=== PATIENT | female | born 1955 | race Caucasian/White ===

== ENCOUNTER → 2016-06-10 18:12 | Outpatient (CLI) | payer MEDICARE ==
[2013-03-13 09:31] VITALS: BMI 28.7
[~2016-06-10 18:12] MED LIST: AMBIEN10 MG PO; COUMADIN2.5 MG; COUMADIN2.5 MG PO; FOLIC ACID1 MG PO; NORCO 10/325 TA1 TA1 PO; NORCO 5/325 TAB1 TA1; NORCO 5/325 TAB1 TA1 PO; PRINIVIL20 MG PO; PYRIDOXINE HCL100 MG PO; TOPROL XL100 MG PO; VITAMIN B-1000 MCG/M INJ; VITAMIN B-1000 MCG/M SQ; VITAMIN D5000 UNIT PO; XANAX0.5 MG PO; ZANTAC150 MG PO
[2016-06-10 18:57] LABS: INR 0.94 (0.85-1.17); PROTIME 12.4 SECONDS (11.6-15.0)
[2016-06-10 19:07] LABS: % SATURATION 53 % (15-55); IRON 132 ug/dl (35-150); TOTAL IRON BIND CAPACITY 249 ug/dl (260-445); UNSAT IRON BIND CAPACITY 117 ug/dl (150-375)
== END | disposition home or self-care (01) ==
LOC: D.LABREF 18:12
PROVIDERS: Family Medicine
DX: E83.119 Hemochromatosis, unspecified (principal); I82.5Z9 Chronic embolism and thrombosis of unspecified deep veins of unspecified distal lower extremity

== ENCOUNTER 2017-12-06 08:00 | Outpatient (CLI) | payer MEDICARE ==
[2013-03-13 09:31] VITALS: BMI 28.7
== END 2017-12-06 10:17 | disposition home or self-care (01) ==
LOC: D.MAMMO 08:00
DX: Z12.31 Encounter for screening mammogram for malignant neoplasm of breast (principal)

== ENCOUNTER 2019-10-27 18:16 | Inpatient (IN) | payer MEDICARE ==
[~2019-10-27] VITALS: Ht 149.9 cm; Wt 53.1 kg
[2019-10-27 19:03] LABS: BASOPHILS 0.4 % (0-2); EOSINOPHILS 3.7 % (0-7); HEMATOCRIT 44.2 % (36.0-48.0); HEMOGLOBIN 14.6 g/dL (12-16); IMMATURE GRANULOCYTES 0.4 % (0-5); LYMPHOCYTES 15.3 % (15-50); MCV 93.8 fL (80.0-100.0); MEAN PLATELET VOLUME 8.3 fL (7.4-10.4); MONOCYTES 7.1 % (2-11); NEUTROPHILS 73.1 % (40-80); PLATELET COUNT 259 10x3/uL (130-400); RBC 4.71 10x6/uL (4.00-5.40); RDW 13.9 % (11.5-14.5); WBC 14.1 10x3/uL (4.8-10.8)
[2019-10-27 19:04] VITALS: BP 166/99
[2019-10-27 19:12] LABS: APTT 35.2 SECONDS (22.8-39.4); INR 1.06 (0.85-1.17); PROTIME 13.7 SECONDS (11.6-15.0)
[2019-10-27 19:17] LABS: ANION GAP 9.2 mmol/L (8-16); CALCIUM 8.3 mg/dL (8.5-10.1); CARBON DIOXIDE 29.6 mmol/L (21.0-32.0); CREATININE - SERUM 0.9 mg/dL (0.6-1.3); POTASSIUM - SERUM 4.8 mmol/L (3.5-5.1)
[2019-10-27 19:22] LABS: ALBUMIN 2.5 g/dL (3.4-5.0); BILIRUBIN - TOTAL 0.29 mg/dL (0.2-1.3); PROTEIN - SERUM 6.7 g/dL (6.4-8.2)
[2019-10-27 19:26] VITALS: BP 160/96
--- NOTE | 2019-10-27 19:33 | NUR ---
SURGICAL PACKET PRINTED AND CONSENTS SIGNED BY PATIENT, PATIENT SHOULD GO TO SURGERY IN ABOUT AN HOUR.PATIENT A+O X3, DAUGHTER TO BEDSIDE.
--- NOTE | 2019-10-27 19:50 | NUR ---
PATIENT WILL BE GOING TO ROOM #2236 AFTER SURGERY.
[2019-10-27 20:02] VITALS: BP 154/97
[2019-10-27 21:17] VITALS: BP 145/87
[2019-10-27 23:44] VITALS: BP 153/90
--- NOTE | 2019-10-27 23:50 | NUR ---
RECEIVED TO ROOM FROM OR. AWAKE,ALERT.DENIES DISCOMFORT AT PRESENT. IV TO LAC INTACT. DRESSING TO RIGHT HIP INTACT WITHOUT DRAINAGE NOTED. O2 @ 2L PER NC ON. NO DISTRESS NOTED. CL IN REACH. DAUGHTER AT BEDSIDE.
[2019-10-28 00:36] VITALS: BMI 23.6
--- NOTE | 2019-10-28 02:32 | NUR ---
PLACED 20 PIV TO PATIENT'S RIGHT FA.
[2019-10-28 04:00] VITALS: BP 96/57
--- NOTE | 2019-10-28 04:00 | NUR ---
I have reviewed this patient and I concur with the Shift Assessment completed by the Licensed Practical Nurse today this shift.
[2019-10-28 06:38] LABS: HEMATOCRIT 39.9 % (36.0-48.0); HEMOGLOBIN 12.7 g/dL (12-16); MCH 30.4 pg (26.0-34.0); MCHC 31.8 g/dL (31.0-37.0); MCV 95.5 fL (80.0-100.0); MEAN PLATELET VOLUME 9.1 fL (7.4-10.4); PLATELET COUNT 256 10x3/uL (130-400); RBC 4.18 10x6/uL (4.00-5.40); RDW 14.1 % (11.5-14.5); WBC 25.8 10x3/uL (4.8-10.8)
[2019-10-28 07:00] LABS: ALBUMIN 2.1 g/dL (3.4-5.0); ANION GAP 9.8 mmol/L (8-16); BILIRUBIN - TOTAL 0.34 mg/dL (0.2-1.3); CALCIUM 7.6 mg/dL (8.5-10.1); CARBON DIOXIDE 27.6 mmol/L (21.0-32.0); CREATININE - SERUM 1.1 mg/dL (0.6-1.3); MAGNESIUM - SERUM 1.2 mg/dL (1.8-2.4); POTASSIUM - SERUM 5.4 mmol/L (3.5-5.1); PROTEIN - SERUM 6.2 g/dL (6.4-8.2)
[2019-10-28 07:27] LABS: LYMPHOCYTES 5 % (15-50); MONOCYTES 5 % (2-11); NEUTROPHILS 88 % (40-80); PLATELET ESTIMATE NORMAL
[2019-10-28 08:00] VITALS: BP 134/80
--- NOTE | 2019-10-28 09:00 | NUR ---
ALERT AND ORIENTED X4. DILAUDID GIVEN PRN FOR RIGHT HIP PAIN 12/06 . DRESSING DRY AND INTACT WITH PEDAL PULSES NOTED W/O PERIPHERAL EDEMA WITH SKIN WIARM AND INTACT. SCD'S ON AT THIS TIME. WBAT PER THERAPY.ELECTROLYTES REPLACED PER PROTOCOL. IVF INFUSING TO RT. F/A W/O ANY S/S OF INFECTION INFILTRATION. ENCOURAGED TO USE CALL LIGHT FOR ASSSIT.
[2019-10-28 11:30] VITALS: BP 166/95
[2019-10-28 12:00] VITALS: BP 166/95
[2019-10-28 13:24] LABS: MAGNESIUM - SERUM 3.1 mg/dL (1.8-2.4); POTASSIUM - SERUM 5.2 mmol/L (3.5-5.1)
[2019-10-28 16:00] VITALS: BP 180/100
[2019-10-28 21:01] VITALS: BP 151/94
[2019-10-29 00:21] VITALS: BP 148/88
[2019-10-29 06:27] LABS: BASOPHILS 0.2 % (0-2); EOSINOPHILS 0.3 % (0-7); HEMATOCRIT 38.3 % (36.0-48.0); HEMOGLOBIN 12.4 g/dL (12-16); IMMATURE GRANULOCYTES 0.4 % (0-5); LYMPHOCYTES 9.3 % (15-50); MCH 30.4 pg (26.0-34.0); MCHC 32.4 g/dL (31.0-37.0); MCV 93.9 fL (80.0-100.0); MEAN PLATELET VOLUME 9.1 fL (7.4-10.4); MONOCYTES 9.7 % (2-11); NEUTROPHILS 80.1 % (40-80); PLATELET COUNT 286 10x3/uL (130-400); RBC 4.08 10x6/uL (4.00-5.40); RDW 13.9 % (11.5-14.5)
[2019-10-29 06:40] LABS: ALBUMIN 2.5 g/dL (3.4-5.0); ALKALINE PHOSPHATASE 224 U/L (30-120); ALT (SGPT) 16 U/L (10-68); BILIRUBIN - TOTAL 0.64 mg/dL (0.2-1.3); CALC OSMOLALITY 241 mosm/kg (275-300); CALCIUM 7.9 mg/dL (8.5-10.1); CARBON DIOXIDE 30.2 mmol/L (21.0-32.0); CHLORIDE - SERUM 89 mmol/L (98-107); GLUCOSE 119 mg/dL (74-106); PROTEIN - SERUM 6.7 g/dL (6.4-8.2); SODIUM 121 mmol/L (136-145); UREA NITROGEN 5 mg/dL (7-18)
[2019-10-29 06:41] LABS: CREATININE - SERUM 0.8 mg/dL (0.6-1.3); POTASSIUM - SERUM 4.1 mmol/L (3.5-5.1); eGFR NON AFRICAN AMERICAN 76 mL/min (90-120)
--- NOTE | 2019-10-29 06:46 | NUR ---
I have reviewed this patient and I concur with the Shift Assessment completed by the Licensed Practical Nurse today this shift.
[2019-10-29 06:47] VITALS: BP 139/90
[2019-10-29 08:08] LABS: BACTERIA FEW /hpf (NEGATIVE); BILIRUBIN NEGATIVE (NEGATIVE); EPITHELIAL CELLS 0-5 /hpf (0-5); GLUCOSE NEGATIVE (NEGATIVE); KETONE NEGATIVE (NEGATIVE); NITRITE NEGATIVE (NEGATIVE); RED CELLS - URINE 0-5 /hpf (0-5); SPECIFIC GRAVITY 1.005 (1.005-1.020); UROBILINOGEN NORMAL (NORMAL); WHITE CELLS - URINE OCC /hpf (NEGATIVE)
[2019-10-29 08:16] VITALS: BP 153/93
--- NOTE | 2019-10-29 08:48 | OP ---
PATIENT NAME: SAWYER OWENS MEDICAL RECORD: [id number] :51 LOCATION:[facility] [id number] ADMISSION DATE:10/27/19 SURGEON: JL NELSON DO DATE OF OPERATION: 10/27/2019 PROCEDURE PERFORMED: Right hip intramedullary nailing. PREOPERATIVE DIAGNOSIS: Right hip intertrochanteric fracture. POSTOPERATIVE DIAGNOSIS: Right hip intertrochanteric fracture. INDICATIONS: Ms. Owens is a 64-year-old female who fell landing on her right hip, brought to the ER and seen to have a hip fracture. I talked to her and told her since she had not eaten since noon we would do her hip at 8 p.m. She is aware of the risks including infection, bleeding, damage to nerves and vessels, need for further surgery, continued pain, hardware failure, screw cutout, continued pain, and need for further surgery, blood clots, and even and she signed the consent. SURGEON: Jl Nelson DO DESCRIPTION OF PROCEDURE: The patient was taken to the operative suite, laid in supine position, given general anesthetic and intubated. She was given a gram of Ancef preoperatively. She was then put over on the [place] table and positioned. The right hip was then prepped and draped in sterile fashion. A timeout was performed and everyone was in agreeance with correct side, site, the procedure. We then began by getting the starting point, make an incision just proximal to the greater trochanter, getting a good starting point with a starting pin on AP and lateral and used an entry reamer. We then reamed from a 9 up to an 11 and sized to be a 9 x 340 mm Affixus nail, put the nail down. Once it was in good position, we put the lag screw and measured in 90 reamed for that and then put in a 90-mm lag screw and compressed. Traction was let off prior to compressing and then locked the screw proximally through the nail and then put in the anti-rotation screw, at 75, drilled and put it in. An x-ray was taken in AP and lateral, ensuring good position of each one of the screws and proximal nail and then went distally with perfect circles then put one 5 mm screw, 38 mm long distally. This fit very well and the nail was in good position and had good reduction of the fracture proximally. We then irrigated the wounds. Ronen licea, certified retinal angiographer, assisted me with closing, we did 2-0 Vicryl in interrupted fashion on the skin. The IT band was closed proximally with 2-0 Vicryl in a [id number] and then Prineo glue was placed on all the incisions, all 3 of them. She was dressed with Telfa and Tegaderm. Awakened and taken to recovery in stable condition. Blood loss approximately 150 mL. COMPLICATIONS: None. TRANSINT:[id number] Voice Confirmation ID: [id number] DOCUMENT ID: [id number] OPERATIVE REPORT [id number] SAWYER OWENS MICHAEL D, DO at 0848 CC: [id number] DICTATION DATE: 10/27/192303 RESEARCH AND DEVELOPMENT TESTER: 10/28/19 0242 ADM IN [facility] [address] [place] [address]
--- NOTE | 2019-10-29 08:59 | NUR ---
SHE IS A LITTLE CONFUSED, THIS MORNING. HER RIGHT HIP DRESSING IS SATURATED AT THE TOP, THE OTHER DRESSING ARE CLEAN, DRY, INTACT. WILL CHANGE THE DRESSINGS TODAY. SHE IS SETTING UP IN THE CHAIR. THE CALL LIGHT IS WITHIN REACH.
[2019-10-29 12:11] VITALS: BP 171/96
--- NOTE | 2019-10-29 14:08 | NUR ---
DRESSING CHANGED TO THE RIGHT HIP, THERE WAS A LARGE BLOOD CLOT AT THE HIP (TOP) OF THE DRESSSING . ROBB REMOVED.
[2019-10-29 16:54] VITALS: BP 146/89
[2019-10-29 21:58] VITALS: BP 142/89
[2019-10-30 00:51] VITALS: BP 88/52
--- NOTE | 2019-10-30 02:13 | NUR ---
REC'D CHGE OF SHIFT WALKING ROUNDS.IN BED LEFT LEG IN CPM MACHINE GRICELDA. WELL. DRSG. DRY AND INTACT. WILL CONTINUE TO MONITOR FOR ANY CHGES. NEUROVASCULAR STATUS AND FOLLOW CURRENT PLAN OF CARE
[2019-10-30 05:24] LABS: BASOPHILS 0.1 % (0-2); EOSINOPHILS 0.8 % (0-7); HEMOGLOBIN 11.1 g/dL (12-16); IMMATURE GRANULOCYTES 0.4 % (0-5); LYMPHOCYTES 14.2 % (15-50); MCH 30.1 pg (26.0-34.0); MCHC 32.6 g/dL (31.0-37.0); MCV 92.1 fL (80.0-100.0); MONOCYTES 15.7 % (2-11); NEUTROPHILS 68.8 % (40-80); PLATELET COUNT 255 10x3/uL (130-400); RBC 3.69 10x6/uL (4.00-5.40); RDW 13.7 % (11.5-14.5)
[2019-10-30 05:50] LABS: WBC 14.2 10x3/uL (4.8-10.8)
[2019-10-30 05:51] LABS: ALKALINE PHOSPHATASE 172 U/L (30-120); ALT (SGPT) 13 U/L (10-68); BILIRUBIN - TOTAL 0.56 mg/dL (0.2-1.3); CALC OSMOLALITY 247 mosm/kg (275-300); CALCIUM 7.5 mg/dL (8.5-10.1); CHLORIDE - SERUM 90 mmol/L (98-107); CREATININE - SERUM 0.7 mg/dL (0.6-1.3); GLUCOSE 100 mg/dL (74-106); MAGNESIUM - SERUM 1.6 mg/dL (1.8-2.4); PHOSPHOROUS 2.2 mg/dL (2.5-4.9); POTASSIUM - SERUM 3.7 mmol/L (3.5-5.1); PROTEIN - SERUM 5.9 g/dL (6.4-8.2); SODIUM 124 mmol/L (136-145); eGFR NON AFRICAN AMERICAN 89 mL/min (90-120)
[2019-10-30 05:55] LABS: UREA NITROGEN 7 mg/dL (7-18)
--- NOTE | 2019-10-30 06:00 | NUR ---
I have reviewed this patient and I concur with the Shift Assessment completed by the Licensed Practical Nurse today this shift.
[2019-10-30 06:16] VITALS: BP 107/68
[2019-10-30 08:45] VITALS: BP 155/88
--- NOTE | 2019-10-30 09:43 | NUR ---
Rehab Note- Acute Inpatient Rehab prescreen order received. The patient has [facility] insurance and will require a PreAuth prior to an acute inpatient rehab stay. Will need OT Eval for PReAuth process. Will continue to follow at this time. THank you for this referral! Roxann Greco RN Clinical Liaison, [facility] Rehab
--- NOTE | 2019-10-30 09:54 | NUR ---
ADMINISTERED MORNING MEDICATIONS, PRN OXYCODONE FOR PAIN, PRN MAG FOR LOW MAG LEVELS. PT IS SITTING UPRIGHT IN BED. ASSESSMENT PERFORMED AT THIS TIME. BED IN LOWEST POSITION, BED RAILS X2, CALL LIGHT WITHIN REACH. WILL CONTINUE TO MONITOR.
[2019-10-30 12:53] VITALS: BP 130/79
--- NOTE | 2019-10-30 12:53 | NUR ---
ADMINISTERED PRN XANAX FOR ANXIETY. NEW BAG OF FLUIDS HUNG. ASSISTED PT TO BATHROOM AND BACK. POSITIONED COMFORTABLY. DIETARY COME IN, PT WAS ASKED WHAT FOOD SHE WOULD EAT BECUASE SHE FEELS THAT THE FOOD PROVIDED BY THE HOSPITAL IS "NOT GOOD". PT STATED SHE DIDN'T WANT ANYTHING FROZEN AND PROCESSED BUT WANTS A BAG OF TACOS FROM [employer]. PT HAS BEEN EDUCATED THAT [employer] IS ALSO PROCESSED FOOD. INSISTS THAT IT'S DIFFERENT. DENIES ANY NEEDS. BED IN LOWEST POSITION, BED RAILS X2, CALL LIGHT WITHIN REACH. WILL CONTINUE TO MONITOR.
[2019-10-30 14:53] VITALS: Ht 149.9 cm; Wt 53.1 kg
--- NOTE | 2019-10-30 15:58 | NUR ---
ADMINISTERED PRN PAIN MEDICATION FOR PAIN IN RIGHT LEG. AID IN ROOM ASESSING VITALS AT THIS TIME. DENIES ANY OTHER NEEDS. WILL CONTINUE TO MONITOR.
--- NOTE | 2019-10-30 16:43 | MORECARE ---
CASE MANAGEMENT DISCHARGE SUMMARY PATIENT: SAWYER WERNER UNIT: [id number] ADM DATE: 10/27/19 AGE: 64 : 53 SEX: F ROOM/BED: D.2236 AUTHOR: TOREY EPPS PHYSICIAN: REFERRING PHYSICIAN: GRETCHEN MERRITT MD DATE OF SERVICE: 10/30/19 Discharge Plan Patient Name: SAWYER WERNER Facility: [facility]:[place] : 1955 Planned Disposition: Anticipated Discharge Date: Discharge Date: Expected LOS: Initial Reviewer: [id number] Initial Review Date: 10/27/2019 Generated: 10/30/19 5:43 pm Comments DCP- Discharge Planning Updated by [email or web address]: Chelsey Alyssa on 10/30/19 3:[address] Patient Name: SAWYER WERNER Admission Status: ER Accout number: [id number] Admission Date: 10-27-2019 : 1955 Admission Diagnosis:DISPLACED INTERTROCHANTERIC FRACTURE OF RIGHT FEMUR, IN Attending: GRETCHEN LARES Current LOS: 3 Anticipated DC Date: Planned Disposition: Primary Insurance: [facility] MEDICARE SOLUTIONS Discharge Planning Comments: CM SPOKE WITH PATIENT'S DAUGHTER SETH AT [phone]. SHE WOULD LIKE HER MOM TO GO HOME WITH IF POSSIBLE. SHE STATES HER AUNT IS FLYING IN THURDS MORNING TO STAY WITH HER MOM. I TOLD HER I WOULD TALK WITH THE DOCTORS TO SEE IF THEY THOUGHT THIS WOULD BE A SAFE DISCHARGE. I KNOW PT IS RECOMMENDING REHAB BECAUSE SHE IS A HIGH FALL RISK. I WILL CHECK WITH THE DOCTORS TOMORROW SINCE THIS IS END OF THE DAY TODAY. Wardrobe Stylist: Chelsey Shah Patient Name: SAWYER WERNER Page [phone] at 1643 All edits/amendments must be made on the electronic document DICTATION DATE: 10/30/19 164 MANAGER FIELD: HORTENCIA 10/30/19 164 RPT#: [id number] DC DATE: STATUS: ADM IN [facility] [address] [place] [address] END OF REPORT
[2019-10-30 16:55] VITALS: BP 130/83
--- NOTE | 2019-10-30 17:19 | NUR ---
ASSISTED PT TO BATHROOM AND BACK TO BED, SITUATED COMFORTABLY. DENIES ANY NEEDS. BED IN LOWEST POSITION, BED RAILS X2, CALL LIGHT WITHIN REACH. WILL CONTINUE TO MONITOR.
--- NOTE | 2019-10-30 20:00 | NUR ---
ASSISTED PT TO THE BATHROOM. SHE STATES SHE HAS HAD 3 SOFT BOWEL MOVEMENTS AND DOES NOT WANT THE STOOL SOFTENERS TONIGHT. SHE REPORTS THE OXYCODONE HELPS MAKE HER PAIN MORE TOLERABLE. SHE DENIES PAIN OR NEEDS. HELPED HER BACK INTO BED WITH MINIMAL ASSISTANCE. BED LOW AND CALL LIGHT IS WITHIN REACH.
--- NOTE | 2019-10-30 20:01 | NUR ---
ADMINISTERED SECOND DOSE OF MAGNESIUM. HUNG BAG OF SODIUM PHOSPHATE FOR EP REPLACEMENT. UNABLE TO COMPLETELY SWALLOW PILL. IV MEDICATION, NO COMPLAINTS. PT IS SITTING UPRIGHT IN BED. DENIES ANY NEEDS. BED IN LOWEST POSITION, BED RAILS X2, CALL LIGHT WITHIN REACH. WILL CONTINUE TO MONITOR.
[2019-10-30 20:58] VITALS: BP 122/83
[2019-10-31 00:32] VITALS: BP 71/40
[2019-10-31 05:29] VITALS: BP 113/65
[2019-10-31 06:05] LABS: BASOPHILS 0.3 % (0-2); EOSINOPHILS 1.8 % (0-7); HEMATOCRIT 28.9 % (36.0-48.0); HEMOGLOBIN 9.2 g/dL (12-16); IMMATURE GRANULOCYTES 0.3 % (0-5); LYMPHOCYTES 16.3 % (15-50); MCH 29.6 pg (26.0-34.0); MCHC 31.8 g/dL (31.0-37.0); MCV 92.9 fL (80.0-100.0); MEAN PLATELET VOLUME 9.3 fL (7.4-10.4); MONOCYTES 17.6 % (2-11); NEUTROPHILS 63.7 % (40-80); PLATELET COUNT 255 10x3/uL (130-400); RBC 3.11 10x6/uL (4.00-5.40); RDW 14.1 % (11.5-14.5); WBC 11.2 10x3/uL (4.8-10.8)
[2019-10-31 06:21] LABS: ALBUMIN 1.8 g/dL (3.4-5.0); ALKALINE PHOSPHATASE 134 U/L (30-120); ALT (SGPT) 11 U/L (10-68); CALC OSMOLALITY 260 mosm/kg (275-300); CALCIUM 7.6 mg/dL (8.5-10.1); CARBON DIOXIDE 27.3 mmol/L (21.0-32.0); CHLORIDE - SERUM 98 mmol/L (98-107); CREATININE - SERUM 0.8 mg/dL (0.6-1.3); GLUCOSE 105 mg/dL (74-106); MAGNESIUM - SERUM 1.6 mg/dL (1.8-2.4); POTASSIUM - SERUM 3.2 mmol/L (3.5-5.1); SODIUM 131 mmol/L (136-145); UREA NITROGEN 7 mg/dL (7-18); eGFR NON AFRICAN AMERICAN 76 mL/min (90-120)
[2019-10-31 06:35] LABS: PHOSPHOROUS 3.5 mg/dL (2.5-4.9)
--- NOTE | 2019-10-31 08:20 | NUR ---
RESTING IN BED, NO DISTRESS NOTED, SKIN WARM AND DRY, MONITOR PAIN
[2019-10-31 08:30] VITALS: BP 122/76
[2019-10-31 12:16] VITALS: BP 110/63
[2019-10-31 14:54] VITALS: BP 100/59
--- NOTE | 2019-10-31 19:47 | NUR ---
REFUSED POTASSIUM AND MAG TO SUPPLEMENT PER PROTOCOL
[2019-10-31 20:00] VITALS: BP 92/57
--- NOTE | 2019-10-31 20:00 | NUR ---
ALERT ASSISTED UP TO BATHROOM WITH WALKER AND BACK TO BED, TOLERATED WELL, DENIES FUTHER NEEDS AT THIS TIME, SEE SHIFT ASSESSMENT, CALL LIGHT IN REACH
[2019-11-01 05:29] LABS: BASOPHILS 0.5 % (0-2); EOSINOPHILS 4.9 % (0-7); HEMATOCRIT 25.9 % (36.0-48.0); HEMOGLOBIN 8.3 g/dL (12-16); IMMATURE GRANULOCYTES 0.4 % (0-5); LYMPHOCYTES 19.3 % (15-50); MCH 30.2 pg (26.0-34.0); MCV 94.2 fL (80.0-100.0); MONOCYTES 18.3 % (2-11); NEUTROPHILS 56.6 % (40-80); PLATELET COUNT 252 10x3/uL (130-400); RBC 2.75 10x6/uL (4.00-5.40); WBC 10.2 10x3/uL (4.8-10.8)
[2019-11-01 05:40] LABS: ALBUMIN 1.7 g/dL (3.4-5.0); ANION GAP 7.3 mmol/L (8-16); BILIRUBIN - TOTAL 0.47 mg/dL (0.2-1.3); CALCIUM 7.5 mg/dL (8.5-10.1); CREATININE - SERUM 0.9 mg/dL (0.6-1.3); MAGNESIUM - SERUM 1.4 mg/dL (1.8-2.4); POTASSIUM - SERUM 3.3 mmol/L (3.5-5.1); PROTEIN - SERUM 4.6 g/dL (6.4-8.2)
[2019-11-01 08:00] VITALS: BP 146/86
[2019-11-01] MEDS ORDERED: oxyCODONE IR PO (08:24)
[2019-11-01] MEDS ORDERED: BAYER CHEWABLE81 MG PO (08:25)
--- NOTE | 2019-11-01 09:00 | MORECARE ---
CASE MANAGEMENT DISCHARGE SUMMARY PATIENT: SAWYER WERNER UNIT: [id number] ADM DATE: 10/27/19 AGE: 64 : 53 SEX: F ROOM/BED: D.2236 AUTHOR: TOREY EPPS PHYSICIAN: REFERRING PHYSICIAN: GRETCHEN MERRITT MD DATE OF SERVICE: 11/01/19 Discharge Plan Patient Name: SAWYER WERNER Facility: [facility]:[place] : 1955 Planned Disposition: Anticipated Discharge Date: Discharge Date: Expected LOS: Initial Reviewer: [id number] Initial Review Date: 10/27/2019 Generated: 11/01/19 9:59 am DCP- Discharge Planning Updated by [email or web address]: Chelsey Shah on 10/30/19 3:[address] Patient Name: SAWYER WERNER Admission Status: ER Accout number: [id number] Admission Date: 10-27-2019 : 1955 Admission Diagnosis:DISPLACED INTERTROCHANTERIC FRACTURE OF RIGHT FEMUR, IN Attending: GRETCHEN LARES Current LOS: 3 Anticipated DC Date: Planned Disposition: Primary Insurance: [facility] MEDICARE SOLUTIONS Discharge Planning Comments: CM SPOKE WITH PATIENT'S DAUGHTER SETH AT [phone]. SHE WOULD LIKE HER MOM TO GO HOME WITH IF POSSIBLE. SHE STATES HER AUNT IS FLYING IN TH MORNING TO STAY WITH HER MOM. I TOLD HER I WOULD TALK WITH THE DOCTORS TO SEE IF THEY THOUGHT THIS WOULD BE A SAFE DISCHARGE. I KNOW PT IS RECOMMENDING REHAB BECAUSE SHE IS A HIGH FALL RISK. I WILL CHECK WITH THE DOCTORS TOMORROW SINCE THIS IS END OF THE DAY TODAY. User Experience Analyst: Chelsey Shah External Providers External Provider: [facility] Next Contact Date: Service Request Date: Service Type: Resolution: Reviewer: Comments: Last DP export: 10/30/19 3:43 pm Patient Name: SAWYER WERNER Page [phone] at 0900 All edits/amendments must be made on the electronic document DICTATION DATE: 11/01/19 0859 SOCIAL MEDIA MARKETING ANALYST: HORTENCIA 11/01/19 0859 RPT#: [id number] DC DATE: STATUS: ADM IN [facility] [address] [place] [address] END OF REPORT
--- NOTE | 2019-11-01 09:14 | MORECARE ---
CASE MANAGEMENT DISCHARGE SUMMARY PATIENT: SAWYER WERNER UNIT: [id number] ADM DATE: 10/27/19 AGE: 64 : 53 SEX: F ROOM/BED: D.2236 AUTHOR: TOREY EPPS PHYSICIAN: REFERRING PHYSICIAN: GRETCHEN MERRITT MD DATE OF SERVICE: 11/01/19 Discharge Plan Patient Name: SAWYER WERNER Facility: [facility]:[place] : 1955 Planned Disposition: Anticipated Discharge Date: Discharge Date: Expected LOS: Initial Reviewer: [id number] Initial Review Date: 10/27/2019 Generated: 11/01/19 10:13 am Comments DCP- Discharge Planning Updated by [id number]: Chelsey Alyssa on 11/01/19 8:[address] Patient Name: SAWYER WERNER Admission Status: ER Accout number: [id number] Admission Date: 10-27-2019 : 1955 Admission Diagnosis:DISPLACED INTERTROCHANTERIC FRACTURE OF RIGHT FEMUR, IN Attending: GRETCHEN LARES Current LOS: 5 Anticipated DC Date: Planned Disposition: Primary Insurance: [facility] MEDICARE SOLUTIONS Discharge Planning Comments: I SPOKE WITH PATIENT AND HER DAUGHTER TODAY. SHE WOULD LIKE [facility] . I HAVE FAXED REFERRAL TO [facility], WAITING CALL BACK. PLANS TO DC TO HOME TODAY AND HER SISTER IS FLYING IN THIS MORNIING TO STAY WITH HER. HER DAUGHTER CAN BE HERE THIS AFTERNOON TO PICK HER UP. CM WILL FOLLOW AND ASSIST NEEDED. Matrix Repairer: Chelsey Shah DCP- Discharge Planning Updated by [email or web address]: Chelsey Alyssa on 10/30/19 3:[address] Patient Name: SAWYER WERNER Admission Status: ER Accout number: [id number] Admission Date: 10-27-2019 : 1955 Admission Diagnosis:DISPLACED INTERTROCHANTERIC FRACTURE OF RIGHT FEMUR, IN Attending: GRETCHEN LARES Current LOS: 3 Anticipated DC Date: Planned Disposition: Primary Insurance: [facility] MEDICARE SOLUTIONS Discharge Planning Comments: CM SPOKE WITH PATIENT'S DAUGHTER SETH AT [phone]. SHE WOULD LIKE HER MOM TO GO HOME WITH IF POSSIBLE. SHE STATES HER AUNT IS FLYING IN MORNING TO STAY WITH HER MOM. I TOLD HER I WOULD TALK WITH THE DOCTORS TO SEE IF THEY THOUGHT THIS WOULD BE A SAFE DISCHARGE. I KNOW PT IS RECOMMENDING REHAB BECAUSE SHE IS A HIGH FALL RISK. I WILL CHECK WITH THE DOCTORS TOMORROW SINCE THIS IS END OF THE DAY TODAY. Matrix Repairer: Chelsey Shah Coverage Notice Reviewer: [id number] Jv Shha Notice Issued Date-Time: 11/01/2019 9:07 Notice Type: IM Discharge Notice Notice Delivered To: Patient Relationship to Patient: Director Of Public Relations Name: Delivery Method: HAND - Hand Delivered Margo Days: Prior Verbal Notification: Recipient Understood Notice: Yes Recipient Signature: Yes Med Rec Note Co-signed by Attending: Coverage Notice Comment: Reviewer: [id number] Jv Shah Notice Issued Date-Time: 11/01/2019 9:07 Notice Type: Patient Choice Letter Notice Delivered To: Patient Relationship to Patient: Director Of Public Relations Name: Delivery Method: HAND - Hand Delivered Margo Days: Prior Verbal Notification: Recipient Understood Notice: Yes Recipient Signature: Yes Med Rec Note Co-signed by Attending: Coverage Notice Comment: [facility] Last DP export: 11/01/19 8:00 am Patient Name: SAWYER WERNER Page [phone] at 0914 All edits/amendments must be made on the electronic document DICTATION DATE: 11/01/19912 SPECIAL EDUCATION INCLUSION TEACHER: HORTENCIA 11/01/19912 RPT#: [id number] DC DATE: STATUS: ADM IN [facility] [address] [place] [address] END OF REPORT
--- NOTE | 2019-11-01 09:21 | MORECARE ---
CASE MANAGEMENT DISCHARGE SUMMARY PATIENT: SAWYER WERNER UNIT: [id number] ADM DATE: 10/27/19 AGE: 64 : 53 SEX: F ROOM/BED: D.2236 AUTHOR: TOREY EPPS PHYSICIAN: REFERRING PHYSICIAN: GRETCHEN MERRITT MD DATE OF SERVICE: 11/01/19 Discharge Plan Patient Name: SAWYER WERNER Facility: [facility]:[place] : 1955 Planned Disposition: Anticipated Discharge Date: Discharge Date: Expected LOS: Initial Reviewer: [id number] Initial Review Date: 10/27/2019 Generated: 11/01/19 10:20 am Comments DCP- Discharge Planning Updated by [email or web address]: Chelsey Alyssa on 11/01/19 8:[address] Patient Name: SAWYER WERNER Admission Status: ER Accout number: [id number] Admission Date: 10-27-2019 : 1955 Admission Diagnosis:DISPLACED INTERTROCHANTERIC FRACTURE OF RIGHT FEMUR, IN Attending: GRETCHEN LARES Current LOS: 5 Anticipated DC Date: Planned Disposition: Primary Insurance: [facility] MEDICARE SOLUTIONS Discharge Planning Comments: I SPOKE WITH PATIENT AND HER DAUGHTER TODAY. SHE WOULD LIKE [facility] . I HAVE FAXED REFERRAL TO [facility], WAITING CALL BACK. PLANS TO DC TO HOME TODAY AND HER SISTER IS FLYING IN THIS [place]ORNIING TO STAY WITH HER. HER DAUGHTER CAN BE HERE THIS AFTERNOON TO PICK HER UP. CM WILL FOLLOW AND ASSIST NEEDED. Loss Control Representative: Chelsey Shah DCP- Discharge Planning Updated by [id number]: Chelsey Alyssa on 10/30/19 3:[address] Patient Name: SAWYER WERNER Admission Status: ER Accout number: [id number] Admission Date: 10-27-2019 : 1955 Admission Diagnosis:DISPLACED INTERTROCHANTERIC FRACTURE OF RIGHT FEMUR, IN Attending: GRETCHEN LARES Current LOS: 3 Anticipated DC Date: Planned Disposition: Primary Insurance: [facility] MEDICARE SOLUTIONS Discharge Planning Comments: CM SPOKE WITH PATIENT'S DAUGHTER SETH AT [phone]. SHE WOULD LIKE HER MOM TO GO HOME WITH IF POSSIBLE. SHE STATES HER AUNT IS FLYING IN MORNING TO STAY WITH HER MOM. I TOLD HER I WOULD TALK WITH THE DOCTORS TO SEE IF THEY THOUGHT THIS WOULD BE A SAFE DISCHARGE. I KNOW PT IS RECOMMENDING REHAB BECAUSE SHE IS A HIGH FALL RISK. I WILL CHECK WITH THE DOCTORS TOMORROW SINCE THIS IS END OF THE DAY TODAY. Loss Control Representative: Chelsey Shah DCPIA - Discharge Planning Initial Assessment Updated by [email or web address]: Chesley Shah on 11/01/19 9:18 am * Is the patient Alert and Oriented? Yes * Preadmission Environment Home Alone * ADLs Independent * Other Equipment WALKER, SC, BSC * Community resources currently utilized None * Additional services required to return to the preadmission environment? Yes * Can the patient safely return to the preadmission environment? Yes * Has this patient been hospitalized within the prior 30 days at any hospital? No Coverage Notice Reviewer: [id number] Jv Shah Notice Issued Date-Time: 11/01/2019 9:07 Notice Type: IM Discharge Notice Notice Delivered To: Patient Relationship to Patient: Supervisor Hairspring Fabrication Name: Delivery Method: HAND - Hand Delivered Margo Days: Prior Verbal Notification: Recipient Understood Notice: Yes Recipient Signature: Yes Med Rec Note Co-signed by Attending: Coverage Notice Comment: Reviewer: [id number] Jv Shah Notice Issued Date-Time: 11/01/2019 9:07 Notice Type: Patient Choice Letter Notice Delivered To: Patient Relationship to Patient: Supervisor [employer]spring Fab[employer]ation Name: Delivery Method: HAND - Hand Delivered Margo Days: Prior Verbal Notification: Recipient Understood Notice: Yes Recipient Signature: Yes Med Rec Note Co-signed by Attending: Coverage Notice Comment: [facility] Last DP export: 11/01/19 8:14 am Patient Name: SAWYER WERNER Page [phone] at 0921 All edits/amendments must be made on the electronic document DICTATION DATE: 11/01/19919 INDUSTRIAL ELECTRICIAN: HORTENCIA 11/01/19919 RPT#: [id number] DC DATE: STATUS: ADM IN [facility] [address] [place] [address] END OF REPORT
--- NOTE | 2019-11-01 10:02 | NUR ---
PT ALERT X 4. BREATH SOUNDS CLEAR BILAT. IV TO RIGHT FOREARM, SALINE LOCKED. PT REFUSES TO TAKE MEDS ORDERED PER ELECTROLYTE PROTOCOL. DRESSING TO RIGHT HIP CDI. PT REPORTING PAIN OF 9/10, MEDICATED PER ORDERS, WILL CONTINUE TO MONITOR. BED LOW, CALL LIGHT IN REACH. NO OTHER NEEDS AT THIS TIME.
--- NOTE | 2019-11-01 12:55 | MORECARE ---
CASE MANAGEMENT DISCHARGE SUMMARY PATIENT: SAWYER WERNER UNIT: [id number] ADM DATE: 10/27/19 AGE: 64 : 53 SEX: F ROOM/BED: D.2236 AUTHOR: SUPRIYADOC PHYSICIAN: REFERRING PHYSICIAN: GRETCHEN MERRITT MD DATE OF SERVICE: 11/01/19 Discharge Plan Patient Name: SAWYER WERNER Facility: [facility]:[place] : 1955 Planned Disposition: Anticipated Discharge Date: Discharge Date: Expected LOS: Initial Reviewer: [id number] Initial Review Date: 10/27/2019 Generated: 11/01/19 1:54 pm Comments DCP- Discharge Planning Updated by [email or web address]: Chelsey Shah on 11/01/19 11:[address] Patient Name: SAWYER WERNER Admission Status: ER Accout number: [id number] Admission Date: 10-27-2019 : 1955 Admission Diagnosis:DISPLACED INTERTROCHANTERIC FRACTURE OF RIGHT FEMUR, IN Attending: GRETCHEN LARES Current LOS: 5 Anticipated DC Date: Planned Disposition: Primary Insurance: [facility] MEDICARE SOLUTIONS Discharge Planning Comments: I SPOKE WITH PATIENT AND HER DAUGHTER TODAY. SHE WOULD LIKE [facility] . I HAVE FAXED REFERRAL TO [facility], WAITING CALL BACK. PLANS TO DC TO HOME TODAY AND HER SISTER IS FLYING IN THIS [place]ORNIING TO STAY WITH HER. HER DAUGHTER CAN BE HERE THIS AFTERNOON TO PICK HER UP. CM WILL FOLLOW AND ASSIST NEEDED. Automation Developer: Chelsey Shah Appended by Chelsey Shah on 11/01/2019 12:51 CDT: [facility] D[facility] CALLED AND WILL SEE TUESDAY. DCP- Discharge Planning Updated by [email or web address]: Chelsey Shah on 10/30/19 3:[address] Patient Name: SAWYER WERNER Admission Status: ER Accout number: [id number] Admission Date: 10-27-2019 : 1955 Admission Diagnosis:DISPLACED INTERTROCHANTERIC FRACTURE OF RIGHT FEMUR, IN Attending: GRETCHEN LARES Current LOS: 3 Anticipated DC Date: Planned Disposition: Primary Insurance: [facility] MEDICARE SOLUTIONS Discharge Planning Comments: CM SPOKE WITH PATIENT'S DAUGHTER SETH AT [phone]. SHE WOULD LIKE HER MOM TO GO HOME WITH IF POSSIBLE. SHE STATES HER AUNT IS FLYING IN [place]ORN[place] TO STAY WITH HER MOM. I TOLD HER I WOULD TALK WITH THE DOCTORS TO SEE IF THEY THOUGHT THIS WOULD BE A SAFE DISCHARGE. I KNOW PT IS RECOMMENDING REHAB BECAUSE SHE IS A HIGH FALL RISK. I WILL CHECK WITH THE DOCTORS TOMORROW SINCE THIS IS END OF THE DAY TODAY. Automation Developer: Chelsey Shah DCPIA - Discharge Planning Initial Assessment Updated by [email or web address]: Chelsey Shah on 11/01/19 9:18 am * Is the patient Alert and Oriented? Yes * Preadmission Environment Home Alone * ADLs Independent * Other Equipment WALKER, SC, BSC * Community resources currently utilized None * Additional services required to return to the preadmission environment? Yes * Can the patient safely return to the preadmission environment? Yes * Has this patient been hospitalized within the prior 30 days at any hospital? No Coverage Notice Reviewer: [id number] Jv Shah Notice Issued Date-Time: 11/01/2019 9:07 Notice Type: IM Discharge Notice Notice Delivered To: Patient Relationship to Patient: Nuclear Powerplant Mechanic Name: Delivery Method: HAND - Hand Delivered Margo Days: Prior Verbal Notification: Recipient Understood Notice: Yes Recipient Signature: Yes Med Rec Note Co-signed by Attending: Coverage Notice Comment: Reviewer: [id number] Jv Shah Notice Issued Date-Time: 11/01/2019 9:07 Notice Type: Patient Choice Letter Notice Delivered To: Patient Relationship to Patient: Nuclear Powerplant Mechanic Name: Delivery Method: HAND - Hand Delivered Margo Days: Prior Verbal Notification: Recipient Understood Notice: Yes Recipient Signature: Yes Med Rec Note Co-signed by Attending: Coverage Notice Comment: [facility] Last DP export: 11/01/19 8:21 am Patient Name: SAWYER WERNER Page [phone] at 1255 All edits/amendments must be made on the electronic document DICTATION DATE: 11/01/195 METEOROLOGICAL OBSERVER: HORTENCIA 11/01/19 1254 RPT#: [id number] DC DATE: STATUS: ADM IN [facility] [address] [place] [address] END OF REPORT
--- NOTE | 2019-11-01 13:36 | NUR ---
DISCHARGE PAPERWORK SIGNED, ALL QUESTIONS ANSWERED. IV TO RIGHT FOREARM DC'D, TIP INTACT. ESCORTED OUT VIA WHEELCHAIR.
--- NOTE | 2019-11-02 09:01 | MORECARE ---
CASE MANAGEMENT DISCHARGE SUMMARY PATIENT: SAWYER WERNER UNIT: [id number] ADM DATE: 10/27/19 AGE: 64 : 51 SEX: F ROOM/BED: D.2236 AUTHOR: TOREY EPPS PHYSICIAN: REFERRING PHYSICIAN: GRETCHEN MERRITT MD DATE OF SERVICE: 11/02/19 Discharge Plan Patient Name: SAWYER WERNER Facility: [facility]:[place] : 1955 Planned Disposition: Anticipated Discharge Date: Discharge Date: 11/01/2019 Expected LOS: Initial Reviewer: [id number] Initial Review Date: 10/27/2019 Generated: 11/02/19 10:01 am Comments DCP- Discharge Planning Updated by [id number]: Chelsey Shah on 11/01/19 11:[address] Patient Name: SAWYER WERNER Admission Status: ER Accout number: [id number] Admission Date: 10-27-2019 : 1955 Admission Diagnosis:DISPLACED INTERTROCHANTERIC FRACTURE OF RIGHT FEMUR, IN Attending: GRETCHEN LARES Current LOS: 5 Anticipated DC Date: Planned Disposition: Primary Insurance: [facility] [employer] SOL[employer]IONS Discharge Planning Comments: I SPOKE WITH PATIENT AND HER DAUGHTER TODAY. SHE WOULD LIKE [facility] . I HAVE FAXED REFERRAL TO [facility], WAITING CALL BACK. PLANS TO DC TO HOME TODAY AND HER SISTER IS FLYING IN THIS [place] TO STAY WITH HER. HER DAUGHTER CAN BE HERE THIS AFTERNOON TO PICK HER UP. CM WILL FOLLOW AND ASSIST NEEDED. Corrections Corporal: Chelsey Shah Appended by Chelsey Shah on 11/01/2019 12:51 CDT: [facility] CALLED AND WILL SEE TUESDAY. DCP- Discharge Planning Updated by [id number]: Chelsey Shah on 10/30/19 3:[address] Patient Name: SAWYER WERNER Admission Status: ER Accout number: [id number] Admission Date: 10-27-2019 : 1955 Admission Diagnosis:DISPLACED INTERTROCHANTERIC FRACTURE OF RIGHT FEMUR, IN Attending: GRETCHEN LARES Current LOS: 3 Anticipated DC Date: Planned Disposition: Primary Insurance: [facility] MED[employer] SOLUTIONS Discharge Planning Comments: CM SPOKE WITH PATIENT'S DAUGHTER SETH AT [phone]. SHE WOULD LIKE HER MOM TO GO HOME WITH IF POSSIBLE. SHE STATES HER AUNT [place] TO STAY WITH HER MOM. I TOLD HER I WOULD TALK WITH THE DOCTORS TO SEE IF THEY THOUGHT THIS WOULD BE A SAFE DISCHARGE. I KNOW PT IS RECOMMENDING REHAB BECAUSE SHE IS A HIGH FALL RISK. I WILL CHECK WITH THE DOCTORS TOMORROW SINCE THIS IS END OF THE DAY TODAY. Corrections Corporal: Chelsey Shah DCPIA - Discharge Planning Initial Assessment Updated by [id number]: Chelsey Shah on 11/01/19 9:18 am * Is the patient Alert and Oriented? Yes * Preadmission Environment Home Alone * ADLs Independent * Other Equipment [place], [place], B[place] * Community resources currently utilized None * Additional services required to return to the preadmission environment? Yes * Can the patient safely return to the preadmission environment? Yes * Has this patient been hospitalized within the prior 30 days at any hospital? No Coverage Notice Reviewer: [id number] Jv Shah Notice Issued Date-Time: 11/01/2019 9:07 Notice Type: IM Discharge Notice Notice Delivered To: Patient Relationship to Patient: Data Review Specialist Name: Delivery Method: HAND - Hand Delivered Margo Days: Prior Verbal Notification: Recipient Understood Notice: Yes Recipient Signature: Yes Med Rec Note Co-signed by Attending: Coverage Notice Comment: Reviewer: [id number] Jv Shah Notice Issued Date-Time: 11/01/2019 9:07 Notice Type: Patient Choice Letter Notice Delivered To: Patient Relationship to Patient: Data Review Specialist Name: Delivery Method: HAND - Hand Delivered Margo Days: Prior Verbal Notification: Recipient Understood Notice: Yes Recipient Signature: Yes Med Rec Note Co-signed by Attending: Coverage Notice Comment: [facility] Last DP export: 11/01/19 11:55 am Patient Name: SAWYER WERNER Page [id number] at 0901 All edits/amendments must be made on the electronic document DICTATION DATE: 11/02/19900 SCREEDMAN/LABORER: HORTENCIA 11/02/19900 RPT#: [id number] DC DATE:11/01/19 STATUS: DIS IN [facility] [address] [place] [address] END OF REPORT
== END 2019-11-01 13:37 | disposition home health service (06) | DRG 481 ==
LOC: D.ER 18:16 → D.MS 19:13 → D.SDCHOLD 10-29 08:38 → D.MS 10-29 08:42
PROVIDERS: Emergency Medicine; Orthopaedic Surgery; ADMIT Family Medicine; ATTEND Family Medicine
PROC: 0QH636Z Insertion of Intramedullary Internal Fixation Device into Right Upper Femur, Percutaneous Approach (ICD-10-PCS; principal; 2019-10-27 22:02)
DX: S72.141A Displaced intertrochanteric fracture of right femur, initial encounter for closed fracture (principal); E87.1 Hypo-osmolality and hyponatremia; W19.XXXA Unspecified fall, initial encounter; I10 Essential (primary) hypertension; E83.110 Hereditary hemochromatosis; G89.29 Other chronic pain; M54.9 Dorsalgia, unspecified; Z72.0 Tobacco use; Z86.718 Personal history of other venous thrombosis and embolism

== ENCOUNTER → 2019-11-22 13:18 | Outpatient (CLI) | payer MEDICARE ==
[2019-10-30 14:53] VITALS: BMI 23.6
[~2019-11-22 13:18] MED LIST changes: +BAYER CHEWABLE81 MG PO; +oxyCODONE IR PO
[2019-11-22 18:41] LABS: BASOPHILS 0.6 % (0-2); HEMATOCRIT 35.8 % (36.0-48.0); HEMOGLOBIN 11.3 g/dL (12-16); IMMATURE GRANULOCYTES 0.4 % (0-5); LYMPHOCYTES 21.9 % (15-50); MCH 30.2 pg (26.0-34.0); MCHC 31.6 g/dL (31.0-37.0); MCV 95.7 fL (80.0-100.0); MEAN PLATELET VOLUME 8.9 fL (7.4-10.4); NEUTROPHILS 62.1 % (40-80); RBC 3.74 10x6/uL (4.00-5.40); RDW 14.1 % (11.5-14.5); WBC 11.2 10x3/uL (4.8-10.8)
[2019-11-22 18:42] LABS: PLATELET COUNT 537 10x3/uL (130-400)
[2019-11-22 18:48] LABS: ANION GAP 8.5 mmol/L (8-16); CALCIUM 9.4 mg/dL (8.5-10.1); CARBON DIOXIDE 31.7 mmol/L (21.0-32.0); CREATININE - SERUM 0.9 mg/dL (0.6-1.3); POTASSIUM - SERUM 4.2 mmol/L (3.5-5.1)
== END | disposition home or self-care (01) ==
LOC: D.LABREF 13:18
PROVIDERS: ATTEND Family Medicine
DX: E83.110 Hereditary hemochromatosis (principal)

== ENCOUNTER → 2019-12-11 08:25 | Outpatient (CLI) | payer MEDICARE ==
[2019-10-30 14:53] VITALS: BMI 23.6
== END | disposition home or self-care (01) ==
LOC: D.CT 08:25
PROVIDERS: ATTEND Orthopaedic Surgery
DX: M25.561 Pain in right knee (principal)